=== PATIENT | male | born 1975 | race Caucasian/White ===

== ENCOUNTER 2019-03-19 15:19 | Emergency (ER) | payer OTHER ==
[2019-03-19 15:36] VITALS: TEMP 98.1; BMI 24.7
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
[2019-03-19] MEDS ORDERED: AMOX TR/POT CLAV 875MG/125MG TABLETS (FP) PO ONE (17:17)
[2019-03-19] MEDS ORDERED: DIPHTH,PERTUSS(ACELL),TET 0.5 ML DISP.SYRIN IM ONE ×2 (17:17→18:08)
[2019-03-19] MEDS ORDERED: ACETAMINOPHEN 500 MG TABLET (FP) PO ONE (17:19)
[2019-03-19] MEDS ORDERED: ACETAMINOPHEN 325 MG TABLET (FP) ONE (18:02)
[2019-03-19] MEDS ORDERED: AMOX TR/POT CLAV 875MG/125MG TABLETS (FP) ONE (18:02)
[2019-03-19] MEDS ORDERED: BACITRACIN 15 GM TUBE TOPICAL OINTMENT TP ONE (20:24)
[2019-03-19] MEDS ORDERED: BACITRACIN 0.9 GM PACKET ONE (20:28)
[2019-03-19 20:35] VITALS: BP 126/78; PULSE 86
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
== END 2019-03-19 20:30 | disposition home or self-care (01) ==
LOC: JER 15:19
PROC: 3E0234Z Introduction of Serum, Toxoid and Vaccine into Muscle, Percutaneous Approach (ICD-10-PCS; principal; 2019-03-19)
DX: S61.052A Open bite of left thumb without damage to nail, initial encounter (principal); Y04.8XXA Assault by other bodily force, initial encounter; Y93.89 Activity, other specified; Y92.512 Supermarket, store or market as the place of occurrence of the external cause; Y99.0 Civilian activity done for income or pay
CPT/HCPCS: 70450-TC; 71046-TC-FY; 72125-TC; 73523-TC-FY; 90715; 99283-25